=== PATIENT | female | born 1965 | race Caucasian/White ===

== ENCOUNTER → 2016-07-29 | Outpatient (CLI) | payer BC | END | disposition home or self-care (01) | LOC: PT 07-28 13:15 ==

== ENCOUNTER 2016-08-15 10:02 | Outpatient (RCR) | payer BC | END 2016-09-23 10:19 | disposition home or self-care (01) | LOC: PT 10:02 | DX: Z47.89 Encounter for other orthopedic aftercare (principal) ==

== ENCOUNTER → 2018-02-16 | Outpatient (CLI) | payer BC ==
[2018-02-16 17:08] LABS: HEMATOCRIT 38.4 % (37.0-47.0); HEMOGLOBIN 12.1 g/dL (12.5-16.0); MEAN CELL VOLUME 84 fl (78-100); MEAN CORPUSCULAR HEMOGLOBIN 26 pg (27-31); MEAN CORPUSCULAR HGB CONC 32 g/dL (33-37); PLATELET COUNT 367 K/mm3 (130-400); RED BLOOD COUNT 4.58 M/mm3 (4.10-5.30); RED CELL DISTRIBUTION WIDTH 14.9 % (11.5-14.5); WHITE BLOOD COUNT 6.9 K/mm3 (4.8-10.8)
[2018-02-16 17:36] LABS: CALCIUM 9.1 mg/dL (8.4-10.2); POTASSIUM 4.3 mmol/L (3.6-5.0); TOTAL BILIRUBIN 0.5 mg/dL (0.2-1.3); TOTAL PROTEIN 7.1 g/dL (6.3-8.2)
[2018-02-16 17:56] LABS: URINE APPEARANCE CLEAR; URINE BILIRUBIN NEGATIVE (NEGATIVE); URINE BLOOD 250 ery/uL (NEGATIVE); URINE COLOR YELLOW; URINE GLUCOSE NEGATIVE (NEGATIVE); URINE KETONE NEGATIVE (NEGATIVE); URINE NITRATE NEGATIVE (NEGATIVE); URINE PROTEIN(semi-quant) TRACE mg/dL (NEGATIVE); URINE UROBILINOGEN NORMAL (NORMAL)
[2018-02-16 17:57] LABS: URINE LEUKOCYTE ESTERASE 2+ (NEGATIVE)
[2018-02-16 18:12] LABS: LYMPHOCYTE 30 % (20-51); MONOCYTE 8 % (3-10); NEUTROPHILS 57 % (42-75)
[2018-02-16 18:24] LABS: ERYTHROCYTE SEDIMENTATION RATE 6 mm/hr (0-30)
== END ==
LOC: LAB 15:34
PROVIDERS: Internal Medicine
DX: D64.9 Anemia, unspecified (principal); R20.2 Paresthesia of skin; R53.83 Other fatigue; F41.8 Other specified anxiety disorders; J45.909 Unspecified asthma, uncomplicated

== ENCOUNTER → 2018-02-23 | Outpatient (CLI) | payer BC ==
[2018-02-23 12:44] LABS: URINE APPEARANCE CLEAR; URINE BILIRUBIN NEGATIVE (NEGATIVE); URINE BLOOD NEGATIVE (NEGATIVE); URINE COLOR YELLOW; URINE GLUCOSE NEGATIVE (NEGATIVE); URINE KETONE NEGATIVE (NEGATIVE); URINE LEUKOCYTE ESTERASE 1+ (NEGATIVE); URINE MUCUS PRESENT (NOT PRESENT); URINE NITRATE NEGATIVE (NEGATIVE); URINE PROTEIN(semi-quant) TRACE mg/dL (NEGATIVE); URINE UROBILINOGEN NORMAL (NORMAL)
== END ==
LOC: LAB 11:17
PROVIDERS: Internal Medicine
DX: D64.9 Anemia, unspecified (principal)

== ENCOUNTER → 2018-06-28 | Outpatient (CLI) | payer BC | LOC: CARDREHAB 12:48 | DX: G47.33 Obstructive sleep apnea (adult) (pediatric) (principal); R06.83 Snoring; G47.10 Hypersomnia, unspecified; R53.83 Other fatigue; Z68.24 Body mass index [BMI] 24.0-24.9, adult | CPT/HCPCS: G0399 ==

== ENCOUNTER → 2021-08-12 | Outpatient (CLI) | payer BC ==
[2021-08-12 13:56] LABS: BASO # 0.05 K/mm3 (0.02-0.10); EOS # 0.57 K/mm3 (0.04-0.40); EOS % 9.6 % (1.0-5.0); HEMATOCRIT 38.9 % (37.0-47.0); HEMOGLOBIN 12.6 g/dL (12.5-16.0); LYMPH# 1.66 K/mm3 (1.50-4.00); MEAN CELL VOLUME 89 fl (78-100); MEAN CORPUSCULAR HEMOGLOBIN 29 pg (27-31); MEAN CORPUSCULAR HGB CONC 32 g/dL (33-37); MEAN PLATELET VOLUME 9.3 fl (7.4-10.4); MONO # 0.45 K/mm3 (0.20-0.80); NEU # 3.21 K/mm3 (1.40-6.50); PLATELET COUNT 371 K/mm3 (130-400); RED BLOOD COUNT 4.38 M/mm3 (4.10-5.30); RED CELL DISTRIBUTION WIDTH 12.6 % (11.5-14.5)
[2021-08-12 14:01] LABS: POTASSIUM 4.9 mmol/L (3.5-5.1); SODIUM 140 mmol/L (136-145)
[2021-08-12 14:02] LABS: CALCIUM 9.4 mg/dL (8.3-10.5)
[2021-08-12 14:03] LABS: GLUCOSE 102 mg/dL (65-105); TOTAL PROTEIN 7.2 g/dL (6.4-8.3)
[2021-08-12 14:04] LABS: CARBON DIOXIDE 27 mmol/L (22-29)
[2021-08-12 14:05] LABS: TOTAL BILIRUBIN 0.5 mg/dL (0.2-1.2)
[2021-08-12 14:08] LABS: AST-SGOT 17 U/L (5-34)
[2021-08-12 14:09] LABS: ALT/SGPT 11 U/L (0-55)
[2021-08-12 14:19] LABS: D-DIMER 0.37 mg/L FEU (0.15-0.50)
[2021-08-12 14:24] LABS: TROPONIN-I < 0.030 ng/mL (<0.030)
== END ==
LOC: LAB 13:05
PROVIDERS: Nurse Practitioner
DX: R07.89 Other chest pain (principal)

== ENCOUNTER → 2021-10-01 | Outpatient (CLI) | payer BC | LOC: LAB 15:29 | DX: K90.9 Intestinal malabsorption, unspecified (principal); R20.2 Paresthesia of skin ==